=== PATIENT | male | born 1965 | race Caucasian/White ===

== ENCOUNTER 2019-10-13 11:03 | Emergency (ER) | payer OTHER ==
[~2019-10-13] VITALS: Ht 188 cm; Wt 120.2 kg
[2019-10-13] MEDS ORDERED: ACID REDUCER20 M1 (11:15)
[2019-10-13] MEDS ORDERED: BENZONATATE 100 MG (11:16)
== END 2019-10-13 14:31 | disposition home or self-care (01) ==
LOC: ER 11:03
DX: J21.8 Acute bronchiolitis due to other specified organisms (principal)